=== PATIENT | male | born 1985 | race African-American/Black ===

== ENCOUNTER 2020-01-25 12:49 | Outpatient (CLI) | payer MEDICAID ==
[~2020-01-25] VITALS: Ht 172.7 cm; Wt 60.8 kg
[2020-01-25 13:02] VITALS: BP 112/75
[2020-01-25] MEDS ORDERED: TIVICAY50 MG ORAL (14:46)
[2020-01-25] MEDS ORDERED: DESCOVY ORAL (14:46)
[2020-01-25] MEDS ORDERED: GRISEOFULVIN500 MG PO (14:46)
--- NOTE | 2020-01-25 15:45 | Consultation ---
DATE OF CONSULTATION: 01/25/2020 GASTROENTEROLOGY CONSULTATION CHIEF COMPLAINT: History of esophageal candidiasis. HISTORY OF PRESENT ILLNESS: This is a very pleasant 34-year-old male with a history of HIV, AIDS, KS, history of candidal esophagitis, complaint of severe oral dysphagia. PAST MEDICAL HISTORY: 1. Arthritis. 2. HIV. 3. AIDS. 4. KS. 5. Candidal esophagitis. 6. Pneumonia. 7. Syphilis. PAST SURGICAL HISTORY: None. MEDICATIONS: Please see medication reconciliation list. FAMILY HISTORY: Father had diabetes. Mother had hypertension. SOCIAL HISTORY: The patient denies any tobacco or alcohol abuse, but he uses marijuana. ALLERGIES: Reglan. REVIEW OF SYSTEMS: A 10-point review of systems was performed and dictated above. PHYSICAL EXAMINATION: VITAL SIGNS: Temperature 97.8, blood pressure 112/75, pulse 67, respirations 28. HEENT: Normocephalic and atraumatic. Sclerae are anicteric. NECK: Supple. No evidence of obvious lymphadenopathy. CARDIOVASCULAR: Regular rate and rhythm. Plus S1, S2. LUNGS: Clear breath sounds bilaterally. ABDOMEN: Soft. Positive bowel sounds. Nontender. No rebound. No guarding. No peritoneal sign. EXTREMITIES: No cyanosis. No clubbing. No edema. ASSESSMENT/PLAN: A 34-year-old male with history of HIV and AIDS, history of Kaposi sarcoma, candidal esophagitis, complaint of severe oral dysphagia. Plan is to do an endoscopy when authorization is obtained. Ede Bedolla M.D. DR: ANSON JOB#: [id number] CC:
[2020-01-26] MEDS ORDERED: KADIAN20 M1 PO (08:01)
== END 2020-01-25 14:49 | disposition home or self-care (01) ==
LOC: PAN 12:49
DX: R13.10 Dysphagia, unspecified (principal); M19.90 Unspecified osteoarthritis, unspecified site; B20 Human immunodeficiency virus [HIV] disease; F12.90 Cannabis use, unspecified, uncomplicated; Z88.8 Allergy status to other drugs, medicaments and biological substances
CPT/HCPCS: G0463

== ENCOUNTER 2020-02-16 11:46 | Emergency (ER) | payer MEDICAID, OTHER ==
[~2020-02-16] VITALS: Ht 172.7 cm; Wt 59.0 kg
[~2020-02-16 11:46] MED LIST: DESCOVY ORAL; GRISEOFULVIN500 MG PO; KADIAN20 M1 PO; TIVICAY50 MG ORAL
[2020-02-16] MEDS ORDERED: Morphine Sulfate 4mg/ml Inj (IV USE ONLY) IVP ONE (12:30)
--- NOTE | 2020-02-16 12:31 | Emergency Room Report ---
History of Present Illness General Chief Complaint: Nausea Source: Patient Present Illness HPI 34-year-old male presents to the emergency department complaining of 10 out of 10 severity diffuse abdominal pain with nausea and vomiting and inability to tolerate oral foods or fluids x2 days. Patient reports chills he denies fevers. Patient reports history of immune compromise and states he is HIV with an unkno wn CD4 count and states he is also currently on chemotherapy treatment for Kaposi sarcoma. Patient states he has not had any recent chemo treatments for almost 2 weeks. He denies symptoms similar to this with previous treatments. He denies constipation or diarrhea. He denies blood in the vomit or stool. Denies black tarry stools. Reports some increased use of nebulized treatments at home with a hx of asthma. Pt. reports last neb was yesterday. reports intermittent cough. No other aggravating or relieving factors. 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 COVID-19 Screening: Negative COVID-19 COVID-19 Testing Source: nasal Patient History Past Medical History: see triage record Past Surgical History: none Pertinent Family History: none Reviewed Nursing Documentation: PMH: Agreed; PSxH: Agreed Nursing Documentation-PMH Hx Cardiac Problems: No - HIV positive Hx Cancer: Yes - KAPOSI SARCOMA Hx Gastrointestinal Problems: Yes - KAPOSI SARCOMA Hx Neurological Problems: No Review of Systems All Other Systems: negative except mentioned in HPI Physical Exam Vital Signs Date Time Temp Pulse Resp B/P (MAP) Pulse Ox O2 Delivery O2 Flow Rate FiO2 02/16/20 11:52 96.1 85 20 135/75 (95) 98 Room Air Sp02 EP Interpretation: reviewed, normal General Appearance: no apparent distress, alert, GCS 15, non-toxic, thin, Chronically Ill Head: normocephalic, atraumatic Eyes: bilateral eye normal inspection, bilateral eye PERRL ENT: hearing grossly normal, normal voice Neck: full range of motion Respiratory: chest non-tender, lungs clear, normal breath sounds, speaking full sentences, other - scant expiratory wheezes bilaterally. Cardiovascular #1: regular rate, rhythm, no edema, normal capillary refill Gastrointestinal: normal bowel sounds, soft, non-distended, no guarding, tenderness - diffuse but most prominently mid epigastric area. no localized mcburney's point tenderness, no rebound. Rectal: deferred Genitourinary: normal inspection, no CVA tenderness Musculoskeletal: back normal, normal range of motion, gait/station normal, non- tender Neurologic: alert, motor strength/tone normal, oriented x3, sensory intact, responsive, speech normal Psychiatric: judgement/insight normal Skin: rash - pt. has many nodular and scabbed lesions/lumps over bilateral UE's and left side of neck. no specific erythema or discharge. Medical Decision Making PA Attestation Dr. Romo is my supervising Physician whom patient management has been discussed with. Diagnostic Impression: Primary Impression: Abdominal pain Qualified Codes: R10.84 - Generalized abdominal pain Additional Impression: Nausea & vomiting Qualified Codes: R11.2 - Nausea with vomiting, unspecified ER Course 34-year-old male presents to the emergency department complaining of 10 out of 10 severity diffuse abdominal pain with nausea and vomiting and inability to tolerate oral foods or fluids x2 days. Patient reports chills he denies fevers. Patient reports history of immune compromise and states he is HIV with an unknown CD4 count and states he is also currently on chemotherapy treatment for Kaposi sarcoma. Patient states he has not had any recent chemo treatments for almost 2 weeks. He denies symptoms similar to this with previous treatments. He denies constipation or diarrhea. He denies blood in the vomit or stool. Denies black tarry stools. Reports some increased use of nebulized treatments at home with a hx of asthma. Pt. reports last neb was yesterday. reports intermittent cough. No other aggravating or relieving factors. Ddx considered but are not limited to Diverticulitis, acute appendicitis, diarrhea,UC, PUD, GE, pancreatitis, gallstone, obstruction, metastasis,acute bronchospasm, COVID-19. Vital signs: are WNL, pt. is afebrile H&PE are most consistent with gastritis. Patient although chronically ill in appearance does not have acute abdomen on exam or toxic appearance. ORDERS: CBC, CMP, lipase, UA: unremarkable. Normal electrolytes and renal function. (No leukocytosis, normal white blood cell countconsideration was given that patient is HIV positive and on chemo and would normally have a low white blood cell count. This was the only theoretical abnormality that was discussed with the patient and it was a collaborative disposition decision that CT imaging and exposure to radiation is not warranted at this time. - ED INTERVENTIONS: -- 1000NS, - Zofran 4mg IV -Pepcid 20mg -4mg Morphine IV Upon reassessment patient reports his symptoms have almost completely resolved. Upon third reassessment prior to discharge after going over urinary results with patient he reports some mild return of his epigastric pain. Patient was then given 15 Toradol IV and modified GI cocktail. He is able to tolerate oral intake and continues to be in no acute distress. D/w pt. that this could also represent infection with COVID-19 as well. The patient was given strict ED return precautions given his immunocompromise. He was instruction to return promptly to the ED with any worsening of his symptoms or development of new symptoms or any concerns. Pt. to return with inability to tolerate oral intake and most critically development of a fever. Patient verbalizes his understanding and agrees to return to the ED promptly. DISCHARGE: At this time pt. is stable for d/c to home. Will provide printed patient care instructions, and any necessary prescriptions. Care plan and follow up instructions have been discussed with the patient prior to discharge. Labs Test 02/16/20 12:50 02/16/20 14:33 White Blood Count 7.4 K/UL (4.8-10.8) Red Blood Count 5.04 M/UL (4.70-6.10) Hemoglobin 14.4 G/DL (14.2-18.0) Hematocrit 44.9 % (42.0-52.0) Mean Corpuscular Volume 89 FL (80-99) Mean Corpuscular Hemoglobin 28.6 PG (27.0-31.0) Mean Corpuscular Hemoglobin Concent 32.1 G/DL (32.0-36.0) Red Cell Distribution Width 13.9 % (11.6-14.8) Platelet Count 392 K/UL (150-450) Mean Platelet Volume 7.6 FL (6.5-10.1) Neutrophils (%) (Auto) % (45.0-75.0) Lymphocytes (%) (Auto) % (20.0-45.0) Monocytes (%) (Auto) % (1.0-10.0) Eosinophils (%) (Auto) % (0.0-3.0) Basophils (%) (Auto) % (0.0-2.0) Differential Total Cells Counted 100 Neutrophils % (Manual) 77 % (45-75) Lymphocytes % (Manual) 13 % (20-45) Monocytes % (Manual) 9 % (1-10) Eosinophils % (Manual) 1 % (0-3) Basophils % (Manual) 0 % (0-2) Band Neutrophils 0 % (0-8) Platelet Estimate Adequate Platelet Morphology Normal Red Blood Cell Morphology Normal Sodium Level 138 MMOL/L (136-145) Potassium Level 3.9 MMOL/L (3.5-5.1) Chloride Level 99 MMOL/L (98-107) Carbon Dioxide Level 27 MMOL/L (21-32) Anion Gap 12 mmol/L (5-15) Blood Urea Nitrogen 10 mg/dL (7-18) Creatinine 1.2 MG/DL (0.55-1.30) Estimat Glomerular Filtration Rate > 60 mL/min (>60) Glucose Level 129 MG/DL (74-106) Calcium Level 10.0 MG/DL (8.5-10.1) Total Bilirubin 0.3 MG/DL (0.2-1.0) Aspartate Amino Transf (AST/SGOT) 19 U/L (15-37) Alanine Aminotransferase (ALT/SGPT) 17 U/L (12-78) Alkaline Phosphatase 164 U/L (46-116) Total Protein 10.2 G/DL (6.4-8.2) Albumin 4.0 G/DL (3.4-5.0) Globulin 6.2 g/dL Albumin/Globulin Ratio 0.6 (1.0-2.7) Lipase 84 U/L (73-393) Urine Color Yellow Urine Appearance Clear Urine pH 6 (4.5-8.0) Urine Specific Roll 1.020 (1.005-1.035) Urine Protein 2+ (NEGATIVE) Urine Glucose (UA) Negative (NEGATIVE) Urine Ketones 3+ (NEGATIVE) Urine Blood Negative (NEGATIVE) Urine Nitrite Negative (NEGATIVE) Urine Bilirubin Negative (NEGATIVE) Urine Urobilinogen 1 MG/DL (0.0-1.0) Urine Leukocyte Esterase 2+ (NEGATIVE) Urine RBC 0-2 /HPF (0 - 0) Urine WBC 2-4 /HPF (0 - 0) Urine Squamous Epithelial Cells Occasional /LPF Urine Bacteria Few /HPF (NONE) Urine Hyaline Casts 2-4 /LPF (NONE) Urine Mucus Few /LPF (NONE/OCC) Chest X-Ray Diagnostic Results Chest X-Ray Diagnostic Results : Chest X-Ray Ordered: Yes # of Views/Limited/Complete: 1 View Indication: Other - Epigastric pain and scant wheezes on exam with GI symptoms, suspicious of possible COVID-19 EP Interpretation: Yes PA Xray: Interpretation reviewed, by supervising MD, and agrees with findings. Interpretation: no consolidation, no effusion, no pneumothorax, no acute cardiopulmonary disease Impression: No acute disease Electronically Signed by: Erica Hollis PA-C Last Vital Signs Date Time Temp Pulse Resp B/P (MAP) Pulse Ox O2 Delivery O2 Flow Rate FiO2 02/16/20 11:52 96.1 85 20 135/75 (95) 98 Room Air Status: improved Disposition: HOME, SELF-CARE Condition: Stable Scripts Mag Hydrox/Aluminum Hyd/Simeth (Mylanta Maximum Strength Liq) 355 Ml Oral.susp 10 ML PO BID, #355 ML Prov: Erica oHllis 02/16/20 Famotidine* (Pepcid 20mg tablet*) 20 Mg Tablet 20 MG ORAL TWICE A DAY for Gerd for 10 Days, #20 TAB 0 Refills Prov: Erica Hollis 02/16/20 Ondansetron Odt* (ZOFRAN ODT*) 4 Mg Tab.rapdis 4 MG BC EVERY 6 HOURS PRN for Nausea & Vomiting, #12 TAB 0 Refills Prov: Erica Hollis 02/16/20 Referrals: Mehran Vance. [facility] Patient Instructions: Nausea and Vomiting, Adult Additional Instructions: Take medications as directed. Follow up with a Primary Care Provider in 3-5 days, even if your symptoms h ave resolved. --Please review list of primary care clinics, if you do not already have a primary care provider --Return sooner to ED if new symptoms occur, or current symptoms become worse. !---!!!! - Please note that this Emergency Department Report was dictated using KeepRecipesexpressive music therapist technology software, occasionally this can lead to erroneous entry secondary to interpretation by the dictation equipment. Erica Hollis Feb 16, 2020 12:30
[2020-02-16 13:27] LABS: HEMATOCRIT 44.9 % (42.0-52.0); HEMOGLOBIN 14.4 G/DL (14.2-18.0); MEAN CORPUSCULAR VOLUME 89 FL (80-99); PLATELET COUNT 392 K/UL (150-450); RED BLOOD COUNT 5.04 M/UL (4.70-6.10); RED CELL DISTRIBUTION WIDTH 13.9 % (11.6-14.8); WHITE BLOOD COUNT 7.4 K/UL (4.8-10.8)
[2020-02-16 13:28] LABS: ANION GAP 12 mmol/L (5-15); BLOOD UREA NITROGEN 10 mg/dL (7-18); CARBON DIOXIDE 27 MMOL/L (21-32); CHLORIDE 99 MMOL/L (98-107); CREATININE 1.2 MG/DL (0.55-1.30); POTASSIUM 3.9 MMOL/L (3.5-5.1); SODIUM 138 MMOL/L (136-145)
[2020-02-16 13:32] LABS: ALANINE AMINOTRANSFERASE 17 U/L (12-78); ALBUMIN/GLOBULIN RATIO 0.6 (1.0-2.7); ALKALINE PHOSPHATASE 164 U/L (46-116); ASPARTATE AMINO TRANSFERASE 19 U/L (15-37); BILIRUBIN,TOTAL 0.3 MG/DL (0.2-1.0)
[2020-02-16] MEDS ORDERED: FAMOTIDINE20 MG ORAL (14:36)
[2020-02-16] MEDS ORDERED: ONDANSETRON ODT4 MG BC (14:36)
[2020-02-16] MEDS ORDERED: MYLANTA MAXIMU355 ML PO (14:36)
[2020-02-16] MEDS ORDERED: Mylanta II UD 30ml ORAL ONE (14:45)
[2020-02-16] MEDS ORDERED: Ketorolac 30mg Inj IV ONE (14:45)
[2020-02-16] MEDS ORDERED: Lidocaine 2% Visc 15ml soln ORAL ONE (14:45)
[2020-02-16 14:53] LABS: APPEARANCE,URINE CLEAR; BILIRUBIN, URINE NEGATIVE (NEGATIVE); GLUCOSE, URINE (UA) NEGATIVE (NEGATIVE); KETONES,URINE 3+ (NEGATIVE); LEUKOCYTE ESTERASE ,URINE 2+ (NEGATIVE); NITRITE,URINE NEGATIVE (NEGATIVE); PH,URINE 6 (4.5-8.0); PROTEIN,URINE 2+ (NEGATIVE); UROBILINOGEN,URINE 1 MG/DL (0.0-1.0)
[2020-02-16 14:54] LABS: COLOR,URINE YELLOW
[2020-02-16 15:29] VITALS: BP 128/76
--- NOTE | 2020-02-16 15:53 | Diagnostic Imaging Report ---
Indication: Chest pain Technique: One view of the chest Comparison: none Findings: Lungs and pleural spaces are clear. Heart size is normal. Impression: No acute process
== END 2020-02-16 15:31 | disposition home or self-care (01) ==
LOC: EMR 12:25
DX: R10.84 Generalized abdominal pain (principal); R11.2 Nausea with vomiting, unspecified; Z88.8 Allergy status to other drugs, medicaments and biological substances; B20 Human immunodeficiency virus [HIV] disease; C46.9 Kaposi's sarcoma, unspecified; Z79.899 Other long term (current) drug therapy
CPT/HCPCS: 36415; 71045; 80053; 81003; 83690; 85007; 85025; 96361; 96374; 96375; J1885; J2270; J2405; J7030; S0028; Z7502; 99284

== ENCOUNTER 2020-04-09 10:59 | Emergency (ER) | payer OTHER ==
[~2020-04-09] VITALS: Ht 172.7 cm; Wt 59.0 kg
[~2020-04-09 10:59] MED LIST changes: +FAMOTIDINE20 MG ORAL; +MYLANTA MAXIMU355 ML PO; +ONDANSETRON ODT4 MG BC
--- NOTE | 2020-04-09 11:34 | NUR ---
ED Nurse Note: pt presents to ED c/o open wounds diffusely over his entire body. pt states that he has been seeing a specialist for them but they have not cleared up, they have now spread to his groin area and are very painful. pt has been taking augmentin, morphine and antivirals for HIV; states the morphine has not helped with px and he does not know what the abx is for.
[2020-04-09 11:36] VITALS: BP 126/80
[2020-04-09] MEDS ORDERED: LIDOCAINE 2%-MU30 GM TP (11:59)
[2020-04-09] MEDS ORDERED: CEPHALEXIN500 MG ORAL (11:59)
[2020-04-09 12:02] VITALS: BP 126/80
--- NOTE | 2020-04-09 12:02 | NUR ---
ER DISCHARGE NOTE: Patient is cleared to be discharged per ERMD, pt is aox4, on room air, with stable vital signs. pt was given dc and prescription instructions, pt was able to verbalize understanding, pt id band removed without complications. pt is able to ambulate with steady gait. pt took all belongings.
--- NOTE | 2020-04-10 10:12 | Emergency Room Report ---
History of Present Illness General Chief Complaint: Skin Rash/Abscess Source: Patient Present Illness HPI 34-year-old male presents to ED for rash. Notes sores to his scrotal area. Started a few weeks ago. Has had similar sores in the past all over his body. History of HIV. Has had Kaposi's sarcoma. Presents with pre-existing healing sores to his arms and legs. Pain is throbbing, 8 out of 10, nonradiating. He is compliant with his meds. Denies fevers or chills. No other aggravating relieving factors. 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 History Past Medical History: HIV, other - kapsoi sarcoma Past Surgical History: none Pertinent Family History: none Social History: Denies: smoking, alcohol use, drug use Immunizations: UTD Reviewed Nursing Documentation: PMH: Agreed; PSxH: Agreed Nursing Documentation-PMH Past Medical History: No History, Except For Hx Cardiac Problems: No - HIV positive Hx Cancer: Yes Hx Gastrointestinal Problems: Yes - KAPOSI SARCOMA Hx Neurological Problems: No Review of Systems All Other Systems: negative except mentioned in HPI Physical Exam Vital Signs Date Time Temp Pulse Resp B/P (MAP) Pulse Ox O2 Delivery O2 Flow Rate FiO2 04/09/20 11:07 97.9 106 16 126/80 (95) 97 Room Air Sp02 EP Interpretation: reviewed, normal General Appearance: no apparent distress, alert, GCS 15, non-toxic, thin Head: normocephalic, atraumatic Eyes: bilateral eye normal inspection, bilateral eye PERRL ENT: hearing grossly normal, normal pharynx, no angioedema, normal voice Neck: full range of motion, supple/symm/no masses Respiratory: chest non-tender, lungs clear, normal breath sounds, speaking full sentences Cardiovascular #1: regular rate, rhythm, no edema Cardiovascular #2: 2+ carotid (R), 2+ carotid (L), 2+ radial (R), 2+ radial (L), 2+ dorsalis pedis (R), 2+ dorsalis pedis (L) Gastrointestinal: normal bowel sounds, non tender, soft, non-distended, no guarding, no rebound Rectal: deferred Genitourinary: normal inspection, no CVA tenderness, other - Ulcerations noted to the scrotal area. No erythema or induration. No fluctuance or discharge Musculoskeletal: back normal, normal range of motion, gait/station normal, non- tender Neurologic: alert, motor strength/tone normal, oriented x3, sensory intact, responsive, speech normal Psychiatric: judgement/insight normal, memory normal, mood/affect normal, no suicidal/homicidal ideation Reflexes: 3+ bicep (R), 3+ bicep (L), 3+ tricep (R), 3+ tricep (L), 3+ knee (R), 3+ knee (L) Lymphatic: no adenopathy Medical Decision Making Diagnostic Impression: Primary Impression: Rash and other nonspecific skin eruption ER Course Hospital Course 34-year-old male presents with sores to his scrotal area. History of HIV Differential diagnoses include: Cellulitis, dermatitis, insect bite, abscess Clinical course Patient placed on stretcher. After initial history, physical exam reveals a male in no acute distress. There are numerous ulcerations noted to his scrotal area. No active bleeding. No discharge. Donaldo findings with patient. Has already similar healing ulcerations noted to his arms and legs. Likely Kaposi's sarcoma. Patient afebrile, nontoxic- appearing. Will discharge with antibiotics and topical medications. Patient would benefit from wound care outpatient. I will provide referrals. Patient agrees to plan Diagnosis -rash stable and discharged to home with prescription for Keflex, mupirocin/lidocaine. Instructed to followup with PMD/wound care. Instructed return to ED if symptoms recur or worsen Last Vital Signs Date Time Temp Pulse Resp B/P (MAP) Pulse Ox O2 Delivery O2 Flow Rate FiO2 04/09/20 12:02 97.9 16 126/80 97 Room Air 04/09/20 11:07 106 Status: improved Disposition: HOME, SELF-CARE Condition: Stable Scripts Cephalexin* (KEFLEX*) 500 Mg Capsule 500 MG ORAL EVERY 6 HOURS, #28 CAP Prov: Mason Romo MD 04/09/20 Mupirocin/Lidocaine (Lidocaine 2%-Mupirocin 2% Oint) 30 Gm Oint...g. 30 GM TP TID, #30 GM Prov: Mason Romo MD 04/09/20 Referrals: Mike Ramos PHYSICIAN (PCP) Patient Instructions: Kaposi Sarcoma Mason Romo MD Apr 10, 2020 10:12
== END 2020-04-09 12:02 | disposition home or self-care (01) ==
LOC: EMR 11:29
DX: R21 Rash and other nonspecific skin eruption (principal); Z21 Asymptomatic human immunodeficiency virus [HIV] infection status; Z85.831 Personal history of malignant neoplasm of soft tissue; Z88.8 Allergy status to other drugs, medicaments and biological substances
CPT/HCPCS: 99282

== ENCOUNTER 2020-04-23 21:29 | Emergency (ER) | payer OTHER ==
[~2020-04-23] VITALS: Ht 172.7 cm; Wt 59.0 kg
[~2020-04-23 21:29] MED LIST changes: +CEPHALEXIN500 MG ORAL; +LIDOCAINE 2%-MU30 GM TP
--- NOTE | 2020-04-23 21:39 | NUR ---
ED Nurse Note: pt comes into ED c/o lesions all over his body. states its become to unbearable. pt has seen oncologist to rule out cancer. pt has been dealing with this for the last 9 months. currently on pain medication, antivirals and abx for it without relief or improvement. pt has hx of RA, HIV. pt a&ox3, vs wnl, resting on stretcher in pain. adjusted position for relief. pt breathing without complications. will continue to monitor and provide pain relief
[2020-04-23 21:49] VITALS: BP 147/93
[2020-04-23 21:51] VITALS: BP 149/89
[2020-04-23] MEDS ORDERED: MIRTAZAPINE15 M3 ORAL (22:05)
[2020-04-23] MEDS ORDERED: ACYCLOVIR200 MG/51 ORAL (22:05)
[2020-04-23] MEDS ORDERED: COMPAZINE25 MG RECTAL (22:06)
[2020-04-23] MEDS ORDERED: MORPHINE IR15 MG ORAL (22:08)
--- NOTE | 2020-04-23 22:08 | Emergency Room Report ---
History of Present Illness General Chief Complaint: Skin Rash/Abscess Source: Patient, Medical Record Present Illness HPI This is an unfortunate 34-year-old male with a history of HIV and questionable Kaposi's sarcoma. He has lesions on his body is been ongoing for years. He said initially that that was Kaposi's sarcoma and he underwent chemotherapy. He claimed that he had a biopsy that was negative for it. Patient complained of generalized pain. He has 1 tablet of his morphine left. Pain is 10 out of 10. Mostly over the sacral area. No drainage. No fever chills but no nausea no vomiting. Nothing made it better. Nothing made it worse. Denies any other complaint. 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 COVID-19 Screening: Negative COVID-19 COVID-19 Testing Source: unknown Patient History Past Medical History: see triage record, old chart reviewed Past Surgical History: other Pertinent Family History: other Social History: Denies: smoking Immunizations: other Reviewed Nursing Documentation: PMH: Agreed; PSxH: Agreed Nursing Documentation-PMH Past Medical History: No History, Except For Hx Cancer: Yes Hx Gastrointestinal Problems: Yes - KAPOSI SARCOMA Hx Neurological Problems: No Review of Systems Eye: Denies: eye pain, blurred vision ENT: Denies: ear pain, nose congestion, throat swelling Respiratory: Denies: cough, shortness of breath Cardiovascular: Denies: chest pain, palpitations Gastrointestinal: Denies: abdominal pain, diarrhea, nausea, vomiting Musculoskeletal: Denies: back pain, joint pain Skin: Reports: rash, lesions Neurological: Denies: headache, numbness Endocrine: Denies: increased thirst, increased urine Hematologic/Lymphatic: Denies: easy bruising All Other Systems: negative except mentioned in HPI Physical Exam Vital Signs Date Time Temp Pulse Resp B/P (MAP) Pulse Ox O2 Delivery O2 Flow Rate FiO2 04/23/20 21:32 98.6 95 18 149/89 (109) 100 Room Air Vitals normal Sp02 EP Interpretation: reviewed, normal General Appearance: no apparent distress, alert, cachetic, Chronically Ill Head: normocephalic, atraumatic Eyes: bilateral eye PERRL, bilateral eye EOMI ENT: hearing grossly normal, normal pharynx Neck: full range of motion, supple, no meningismus Respiratory: chest non-tender, lungs clear, normal breath sounds Cardiovascular #1: regular rate, rhythm, no murmur Gastrointestinal: normal bowel sounds, non tender, no mass, no organomegaly, no bruit, non-distended Musculoskeletal: back normal, normal range of motion, gait/station normal Psychiatric: mood/affect normal Skin: other - Patient has multiple hyperpigmented circular dried lesions on his body. Medical Decision Making Diagnostic Impression: Primary Impression: Rash and other nonspecific skin eruption ER Course Patient presents with exacerbation of chronic pain. This is chronic in nature and does not require emergent work-up. He said he is compliant with his HIV medication. I see no evidence any abscess or deep infection. Will discharge home. Last Vital Signs Date Time Temp Pulse Resp B/P (MAP) Pulse Ox O2 Delivery O2 Flow Rate FiO2 04/23/20 21:51 98.6 66 18 149/89 100 Room Air Status: improved Disposition: HOME, SELF-CARE Condition: Stable Scripts Morphine HCl (Morphine Sulfate ER) 15 Mg Tablet.er 15 MG ORAL Q6H PRN for For Pain, #14 TAB Prov: Emerson Gan MD 04/23/20 Patient Instructions: Rash Additional Instructions: Follow-up with your doctor for refill your pain medication next week. Return if symptoms worsen. Emerson Gan MD Apr 23, 2020 22:08
--- NOTE | 2020-04-23 22:10 | NUR ---
ER DISCHARGE NOTE: Patient is cleared to be discharged per ER MD after pain medication administration, pt is aox4, on room air, with stable vital signs. pt was given dc and prescription instructions, pt was able to verbalize understanding, pt id band removed without complications. pt is able to ambulate with steady gait. pt took all belongings. pt is being picked up by significant other and will follow up with pain mgmt dr per pt.
[2020-04-23 22:21] VITALS: BP 135/91
[2020-04-23 22:22] VITALS: BP 135/90
== END 2020-04-23 22:22 | disposition home or self-care (01) ==
LOC: EMR 22:05
DX: R21 Rash and other nonspecific skin eruption (principal); Z85.831 Personal history of malignant neoplasm of soft tissue; Z88.8 Allergy status to other drugs, medicaments and biological substances; Z79.899 Other long term (current) drug therapy
CPT/HCPCS: 96372; J1170; Z7502; 99283